=== PATIENT | male | born 1955 | race Caucasian/White ===

== ENCOUNTER 2016-08-13 13:31 | Day surgery (SDC) | payer OTHER ==
[~2016-08-13] VITALS: Ht 175.3 cm; Wt 79.4 kg
[~2016-08-13 13:31] MED LIST: 0.9% Sodium Chloride 1,000 ML IV SCH; ATOR20TA PO; CYAN500 PO; ESOM40CA41 PO; GLBR5T PO; HYDR-656 PO; KEN25CR EXT; LISI10TA PO; METF-777 PO; METO75TA PO; SERT100T9 PO; Sodium Chloride LOK Flush 10 mL Syringe IV PRN; VENL37.57 PO; fentaNYL-PF 50 mCg/mL 2 mL Inj IVPUSH PRN; vitamin d3 PO
[2016-08-13 13:48] VITALS: BP_SYST 133; BP_SYST 148; BP_DIAS 101; BP_DIAS 93; PULSE 100; RESP 14; O2SAT 100
[2016-08-13] MEDS ORDERED: FUR20 PO (13:56)
--- NOTE | 2016-08-13 14:43 | PCM.ENDEGD ---
EGD Date of Service: Aug 13, 2016 Physician Juan J Doran MD Pre Procedure Diagnosis: Reflux Post Procedure Dx & Findings: Gastritis esophagitis possible fungal esophagitis. Procedure Esophagogastroduodenoscopy PROCEDURE IN DETAIL: After proper sedation, Olympus video endoscope was inserted into patient's mouth and esophagus was successfully intubated. Scope introduced esophagus. Esophagus showed normal shiny whitish mucosa consistent with squamous cell component. However there is some patches of whitish material in the near fashion suspicious for fungus. Brushing obtained for cytology. Z line was irregular with redness and edema at 40 cm from the incisors. The scope further events to the stomach. Stomach showed normal reddish edematous mucosa with edematous appearing rugae folds without any ulcer mass erosion. Appears to have inflammation from the antrum to the fundus. Biopsies are obtained from the antrum to the fundus. Cardia fundus body antrum pylorus were all visualized. Retroflexion was done. Stomach was easily inflated and deflatable using air. Scope further events to the distal duodenum. Duodenum revealed normal villous structures with normal appearing folds without any mass ulcer erosion. Impression Possible fungal esophagitis Esophagitis Gastritis Recommendation Await cytology PPI. Follow up in GI clinic Presedation Assessment Risks and Benefits Informed consent was obtained from the patient after all risks and benefits including but not limited to drug reaction, infection, pain, bleeding, perforation, as well as alternatives were discussed. Patient monitoring Continuous pulse oximetry, cardiac monitoring, blood pressure monitoring, IV access, and oxygen at 2L per nasal cannula. Periprocedural Fentanyl: Fentanyl 100mcg Incrementally Midazolam: Midazolam 5mg Incrementally Complications There were no periprocedural complications identified. Post Procedure Plan Post Procedure Recommendations 1. Restrict activities today. 2. Resume normal activities in the morning. 3. Resume medications. 4. GERD behavioral modification: - Avoid fatty, acidic, spicy, large meals - Do not lie down after meals - Do not eat or drink anything for at least 2 1/2 hours before going to bed at night - Discontinue tobacco and alcohol - Decrease or avoid caffeine - Avoid chocolate and mints - Decrease weight - Avoid aspirin and non steroidal anti-inflammatory agents (NSAID) such as Aleve, Advil, Mobic, Naproxen, Ibuprofen, etc 5. Add proton pump inhibitor. Take 30 minutes before 1st meal of the day. 6. Patient informed of normal post procedure side effects as bloating, drowsiness, blood streaking in the stool 7. If gastric biopsy reveal H.pylori, continue with appropriate treatment 8. If small bowel biopsy reveals celiac, continue with appropriate treatment 9. Please don't hesitate to call me with any questions Juan J Doran MD Aug 13, 2016 14:43
--- NOTE | 2016-08-13 15:03 | PCM.ENDCOL ---
Colonoscopy Date of Service: Aug 13, 2016 Physician Juan J Doran MD Pre Procedure Diagnosis: Screening and liver lesion Post Procedure Dx & Findings: Polyp hemorrhoids diverticuli Procedure Colonoscopy PROCEDURE IN DETAIL: Prep adequate Withdrawal time 11 minutes After unremarkable rectal examination the Olympus video colonoscope was inserted patient's anal canal and was advanced to cecum. Landmarks were identified including the ileocecal valve and appendiceal orifice. Scope was withdrawn systematically. Visualized colonic mucosa showed healthy shiny mucosa with normal healthy-appearing vasculature. In the sigmoid colon there was a sub mm polyp which was removed completely using cold forceps. From the descending colon into the distal sigmoid colon, multiple medium-size diverticula noted. In the rectum retroflexion was done which showed hemorrhoids. Anal canal was inspected carefully on the way out and hemorrhoids noted. Impression Polyp 1 status post complete removal Diverticuli Hemorrhoids No source in the colon to explain the liver lesion. Recommendation Follow up in the GI clinic in 2 weeks Please make sure the MRI is done prior to the follow-up Presedation Assessment Risks and Benefits Informed consent was obtained from the patient after all risks and benefits including but not limited to drug reaction, infection, pain, bleeding, perforation, as well as alternatives were discussed. Patient monitoring Continuous pulse oximetry, cardiac monitoring, blood pressure monitoring, IV access, and oxygen at 2L per nasal cannula. Periprocedural Fentanyl: Fentanyl 25mcg Midazolam: Midazolam 2mg Incrementally Complications There were no periprocedural complications identified. Post Procedure Plan Post Procedure Recommendations 1. Restrict activities today. 2. Resume normal activities in the morning. 3. Resume medications. 4. Patient informed of normal post procedure side effects as bloating, drowsiness, blood streaking in the stool. 5. average risk CRCS. If colon polyps come back as: -Hyperplastic- can repeat colonoscopy in 10 years -Tubular adenoma- repeat colonoscopy in 5 years -Tubulovillous/villous adenoma- repeat colonoscopy in 3 years -If any dysplasia- return to clinic as soon as possible 6. Please don't hesitate to call me with any questions. Juan J Doran MD Aug 13, 2016 15:03
[2016-08-13 15:05] VITALS: BP 118/83; PULSE 99; RESP 14; O2SAT 93
[2016-08-13 15:15] VITALS: BP 118/80; PULSE 95; RESP 16; O2SAT 93
[2016-08-13 15:31] VITALS: BP 107/73; PULSE 99; RESP 16; O2SAT 96
--- NOTE | 2016-08-16 11:10 | PATH ---
SURGICAL PATHOLOGY Attending Physician:Juan J Doran M.D. CASE STATUS: Signed Out PATIENT NAME: MARY SALEEM PID: [id number] : 1955 DATE COLLECTED:08/13/2016 00:00 SPECIMEN: 1: Stomach, Biopsy 2: Esophagus, Biopsy 3: Colon, Biopsy CLINICAL HISTORY: 1). STOMACH BIOPSY 2). GASTRO-ESOPHAGEAL JUNCTION BIOPSY 3). SIGMOID POLYP X1 FINAL DIAGNOSIS: 1.STOMACH BIOPSY: GASTRIC CORPUS AND ANTRUM WITH MILD CHRONIC GASTRITIS. Negative for Helicobacter organisms. Negative for intestinal metaplasia. No evidence of dysplasia or malignancy. 2.GASTROESOPHAGEAL JUNCTION BIOPSY: ESOPHAGEAL SQUAMOUS EPITHELIUM AND GASTRIC GLANDULAR MUCOSA WITH CHRONIC ACTIVE INFLAMMATION. Negative for intestinal metaplasia. No evidence of dysplasia or malignancy. 3.SIGMOID COLON POLYP: HYPERPLASTIC POLYP. ICD10 CODE K20.9 D12.6 GROSS DESCRIPTION: The specimen is received in three formalin filled containers labeled with the patient's name. 1). The specimen is sublabeled "stomach" and consists of 4 portions of tissue which aggregate to 0.4 x 0.4 x 0.2 CM. The specimen is entirely submitted in cassette 1A. 2). The specimen is sublabeled "GEJ" and consists of 2 tiny portions of tissue which aggregate to 0.2 x 0.2 x 0.2 CM. The specimen is entirely submitted in cassette 2A. 3). The specimen is sublabeled "sigmoid polyp" and consists of a 0.3 x 0.2 x 0.2 CM portion of tissue which is entirely submitted in cassette 3A. 08/15/2016 DAC MICRO DESCRIPTION: See diagnosis. ICD-9 CODES: CPT CODES: 1: 95408 2: 59687, 86136 3: 73376 PROCEDURE/ADDENDA: Immunohistochemistry SPI Interpretation {Not Entered} Results-Comments This addendum is issued to report the results of a special stain. Part 2 A PAS stain is negative for fungal organisms. A control stain showed appropriate reactivity. This test was developed and its performance characteristics determined by [facility]. It has not been cleared or approved by the U. S. Food and Drug Administration. The FDA has determined that such clearance or approval is not necessary. This test is used for clinical purposes. It should not be regarded as investigational or for research. Electronically Signed Out Jolly Curry MD Electronically Signed Out Rafiq Mccullough MD [facility] Pathology [facility] [address], [place] [address] Technical component performed at [facility], [address], [place], [address]
[2016-09-19] MEDS ORDERED: TAMS0.4C98 PO (16:24)
[2016-10-03] MEDS ORDERED: HYDR-656 PO (11:55)
[2016-10-31] MEDS ORDERED: DOXY100T2 PO (11:22)
[2016-10-31] MEDS ORDERED: OXYC5TAB72 PO (11:22)
== END 2016-08-13 23:59 | disposition home or self-care (01) ==
LOC: END 13:31
PROVIDERS: ATTEND Internal Medicine
DX: K76.9 Liver disease, unspecified (principal); K63.5 Polyp of colon; K57.30 Diverticulosis of large intestine without perforation or abscess without bleeding; K64.9 Unspecified hemorrhoids; K29.50 Unspecified chronic gastritis without bleeding; K21.9 Gastro-esophageal reflux disease without esophagitis; R63.4 Abnormal weight loss; I10 Essential (primary) hypertension; B18.2 Chronic viral hepatitis C; D50.9 Iron deficiency anemia, unspecified; E11.9 Type 2 diabetes mellitus without complications; F32.9 Major depressive disorder, single episode, unspecified; Z79.84 Long term (current) use of oral hypoglycemic drugs; Z86.010 Personal history of colon polyps; Z68.25 Body mass index [BMI] 25.0-25.9, adult
CPT/HCPCS: 43239; 45380; 88305; 99153; G0500; J2250; J3010; J7030

== ENCOUNTER 2016-08-14 16:06 | Inpatient (IN) | payer OTHER ==
[2016-08-14] VITALS (24 sets, daily range): BP systolic 85–145; BP diastolic 61–90; PULSE 72–100; RESP 16–26; O2SAT 96–100
[~2016-08-14] VITALS: Ht 177.8 cm; Wt 74.1 kg
--- NOTE | 2016-08-14 14:24 | DRSUS ---
PROCEDURE: US-GUIDED LIVER BIOPSY ([id number]) Ultrasound-guided liver biopsy with local anesthesia only. INDICATIONS: INFERIOR RIGHT LIVER LESION TECHNIQUE: The indications, alternatives, benefits, risks, and complications of the procedure were e xplained to the patient. Written informed consent was obtained and placed in the chart. Continuous EKG and hemodynamic monitoring was started by trained personnel. Real-time sonography was utilized to choose the site for percutaneous hepatic biopsy. The skin was p repped and draped in the usual sterile fashion. 1% lidocaine was infiltrated down to the hepatic cap chantelle. A coaxial needle was then advanced into the liver under direct sonographic visualization. A b iopsy apparatus was then utilized, and core biopsies were obtained. The needle was then withdrawn; a bandage and overlying weight were applied to the biopsy site. COMPARISON: [facility], US, US GUIDED BX LIVER(PNL), 01/15/2008, 10:11. FINDINGS: Biopsy site(s): Right hepatic lobe, small lesion biopsied from anterior approach. Needle: [facility] biopsy needle set. Number of passes: 3 Medications: 1% lidocaine for local anaesthesia. Complications: None. IMPRESSION: Successful ultrasound-guided liver biopsy, with pathology results pending. Dictated by: Markell Blakely M.D. on 08/14/2016 at 14:22 Approved by: Markell Blakely M.D. on 08/14/2016 at 14:23
--- NOTE | 2016-08-14 15:34 | DRSVH ---
PROCEDURE: CT ABDOMEN WITHOUT CONTRAST ([id number]) INDICATIONS: POST LIVER BX TECHNIQUE: After the administration of oral contrast, 5 mm thick sections acquired from the diaphragms to the il iac crests. 5 mm coronal and sagittal reformats were then performed. For radiation dose reduction, the following was used: automated exposure control, adjustment of mA and/or kV according to patient size. COMPARISON: [facility], MR, MR ABD W&WO CON, 08/03/2016, 12:22. [facility], CT, CT CHEST ABD PELVIS WO CON, 07/09/2016, 12:42. [facility], US, ABDOMEN LTD, 08/14/2016 , 14:37. FINDINGS: Image quality: Excellent. Lung bases: Lung bases are clear. Heart size is normal. Solid organs: Liver and spleen are normal in size. The liver is again seen to contain 2 masses, the largest is superior and measures up to almost 6 cm at the hepatic dome, and the smaller of which is more low within the right hepatic lobe at the junction of middle and lower thirds, measuring up to 1. 4 cm. This is the lesion that was biopsied. Gallbladder contains calcifications. Pancreas is normal in contours. No adrenal nodules. Both kidn eys are normal in size, without hydronephrosis or nephrolithiasis. Peritoneum and bowel: Bowel loops demonstrate normal wall thickness and caliber. No free air. Ther e is abnormal free fluid, hyperdensity, comprised of a rim of approximately 3 cm around the entire li adr, on the right, and tracking inferiorly into the right paracolic gutter. A slight amount of free fluid hypodensity in character is present at the left paracolic gutter. The radiodensity of this reyes e fluid is 40.5 Hounsfield units versus 32.8 Hounsfield units within the aorta. Nodes and vessels: No retroperitoneal or mesenteric adenopathy by size criteria. Aorta and inferior vena cava are normal in size. Bones: No suspicious bony lesions. No vertebral body compression fractures. Miscellaneous: No ventral hernias. IMPRESSION: The liver biopsy performed earlier today was successful in obtaining biopsied material th rough the percutaneous approach utilizing a 20 gauge core biopsy technique. This, however, appears t o have initiated a hemorrhage into the perihepatic space, measuring up to 3 cm in thickness on the ri ght. This extends to a small degree into the paracolic gutter on the right and minimal on the left. The information was immediately discussed with the on-call surgeon, personally. Ongoing hemorrhage i s presumed. The patient has been typed and crossed for at least 4 units at this time. Additionally, hydration with intravenous access is ongoing. The surgeons now caring for the patient will arrange transport from the short observation unit to the surgery unit for laparoscopic evaluation and control of hemorrhage. The access point for biopsy will be clearly visible on the skin surface at the anterolateral upper ab domen, and the site for biopsy from skin surface is approximately 5 cm in depth, anterolateral approa ch. Dictated by: Markell Blakely M.D. on 08/14/2016 at 15:18 Approved by: Markell Blakely M.D. on 08/14/2016 at 15:32
[~2016-08-14 16:06] MED LIST changes: -0.9% Sodium Chloride 1,000 ML IV SCH; +0.9% Sodium Chloride 1,000 ML ONE; +0.9% Sodium Chloride 250 ML ONE; -CYAN500 PO; +FUR20 PO; +Flumazenil 0.1 mg/mL 5 mL Inj IV ONE; -KEN25CR EXT; -Sodium Chloride LOK Flush 10 mL Syringe IV PRN; -vitamin d3 PO
--- NOTE | 2016-08-14 16:10 | DRSUS ---
PROCEDURE: US ABDOMEN, LIMITED ([id number]) INDICATIONS: POST PROCEDURE TECHNIQUE: Real-time focused scanning was performed of the abdomen, with image documentation. COMPARISON: [facility], US, US GUIDED BX LIVER, 08/14/2016, 10:05. [facility], US, ABDOMEN LTD, 08/10/2016, 8:02. FINDINGS: The patient has undergone a percutaneous liver biopsy earlier today, approximately 10 in th e morning, with subsequent concern for possible hemorrhage as a result of this procedure. During sca nning there is free fluid seen the small degree of the right lower quadrant, and none found in the le ft lower quadrant. There is also free fluid around the right hepatic margin. IMPRESSION: The presence of free fluid in the peritoneal space after liver biopsy earlier today thang benavidez concern for post procedural hemorrhage and followup CT scanning will be obtained emergently. Plea se refer to the CT scan report which was performed at approximately 3 in the afternoon. Note: The subsequent CT did show perihepatic hemorrhage, and surgical consultation was immediately ob tained for surgical intervention. Dictated by: Markell Blakely M.D. on 08/14/2016 at 16:07 Approved by: Markell Blakely M.D. on 08/14/2016 at 16:09
[2016-08-14] MEDS ORDERED: Lactated Ringer's 1,000 ML IV ONE ×2 (16:25→16:56)
[2016-08-14] MEDS ORDERED: Insulin Human REGular-Omnicell 100 Unit/mL ONE (16:39)
--- NOTE | 2016-08-14 16:50 | PCM.HPANE ---
Patient Data Surgeon Admitting Provider: Attending Provider:Jb Carter MD Primary Care Physician:Jose Cruz Man Other Provider: Reason for Visit Diseases Of Liver Ht/WT & BMI Height (Feet): 5 Height (Inches): 10.00 Weight (Kilograms): 77.300 Body Mass Index .00 Allergies Coded Allergies: No Known Allergies (Unverified Allergy, Unknown, 06/02/15) Past Anesthesia History Anesthesia History: Denies:: Abnormal Airway, Anesthesia Reactions, Difficult Intubation, Fam Anesthesia Reaction, Fam Malignant Hypertherm, Malignant Hyperthermia Diabetes History Hx Diabetes?: Yes Current Bedside Blood Glucose: 350 MRSA MRSA: No Medications Hypertension Medication: Yes Home Meds Incl Beta Devin: Yes Previous Beta Devin Dose >24: Dose Not Given, Contraindicated Reported Medications Furosemide 20 Mg Tab20 Mg PO BID 30 Days Ref 0 08/13/16 Metoprolol Tartrate 75 Mg Cnyglv74 Mg PO BID 07/30/16 hydrOXYzine Hcl (HydrOXYzine Hcl)25 Mg Vdyufy80.5-25 Mg PO TID PRN For Itching Ref 0 07/30/16 Glyburide 5 Mg Tab5 Mg PO BIDAC Ref 0 07/30/16 Esomeprazole Magnesium (Nexium)40 Mg Capsule.dr40 Mg PO BID Ref 0 07/30/16 Sertraline HCl (Sertraline)100 Mg Lldbrq863 Mg PO DAILY Ref 0 07/30/16 Lisinopril 10 Mg Dafoqb61 Mg PO DAILY Ref 0 07/30/16 Venlafaxine 37.5 Mg Pdyrke71.5 Mg PO BIDWM Ref 0 07/30/16 Metformin HCl (Metformin HCl ER)500 Mg [id number] Mg PO BID 07/30/16 Atorvastatin (Lipitor)20 Mg Veztlw79 Mg PO DAILY Ref 0 07/30/16 Discontinued Reported Medications Triamcinolone Acet (Triamcinolone Acetonide Cream)1 Applic/0.25 Gm Cr1 Applic EXT BID Ref 0 07/30/16 Cyanocobalamin (Vitamin B12)500 Mcg Tablet1,000 Mcg PO DAILY 07/30/16 [vitamin d3] No Conflict Check Po Daily Unknown dose 07/30/16 History History of ENT Problems?: No HEENT History: Positive for:: Hearing Problem Denies:: Abnormal Airway Difficult Intubation Dysphagia Hx of Heart Problems?: Yes Cardiovascular History: Positive for:: Hypertension Denies:: AICD Atrial Fibrillation Chest Pain Congestive Heart Failure Pacemaker Valvular Heart Disease Other Cardiac History: Denies history of CAD/CHF. Hx of Respiratory Problem?: No Respiratory History: Denies:: Tuberculosis Neurological History: Positive for:: Headaches (headaches daily x last 6 months) Denies:: CVA (POSSIBLE TIA) Dementia Hx of GI Problems?: Yes Gastrointestinal History: Positive for:: Gastroesphageal Reflux Hiatal Hernia Rectal Bleeding Denies:: Cirrhosis Diverticulitis Other GI Pertinent History: s/p liver biopsy today with ongoing hemorrhage Hx of Problems?: No Other Skin Pertinent History: patient is covered with scabs from itching Musculoskeletal History: Denies:: Joint Replacement Psycho Social History: Positive for:: Hx Depression Denies:: Anxiety Hx Surgeries?: Yes (NASAL, COLONSCOPIES) Hx Any Other Health Problems?: No History Blood Transfusions: Positive for:: Accept Blood Products? Denies:: Blood Transfusions Hx Diabetes: YesBedside Blood Glucose: 350 Hx Alcohol Use: Yes (2 beers daily; significant use)Hx Substance Use: No Smoking Status: Former Smoker Have You Smoked inLast 12 mo: No Stop/Bang THERESA Risk Assessment: High Risk, =/>3 Yes Risk Assessment Category Category 1A: Patient has history of documented sleep apnea, and HAS NOT received any narcotic, sedative or anesthesia administration during this stay. Category 1B: Patient has history of documented sleep apnea, and HAS received any narcotic , sedative or anesthesia administration during this stay Category 2: Patient has SUSPECTED Obstructive Sleep Apnea, and HAS received any narcotic , sedative or anesthesia administration during this stay. Category 3: Patient has SUSPECTED Obstructive Sleep Apnea and HAS NOT received narcotic, sedative or anesthesia administration during this stay. Category 4: Outpatient in Procedural Areas with known sleep apnea or who screen positive for High Risk via the STOP/BANG questionnaire. Exam Exam Vital Signs Vital Signs Date Time Temp Pulse Resp B/P Pulse Ox O2 Delivery O2 Flow Rate FiO2 08/14/16 16:00 99 20 101/72 97 Room Air 08/14/16 15:45 100 22 111/79 98 Room Air 08/14/16 15:31 99 26 104/75 97 Room Air 08/14/16 15:15 95 22 110/71 Room Air 08/14/16 15:00 94 20 100/74 Room Air 08/14/16 14:45 93 23 95/72 Room Air 08/14/16 14:35 96 101/67 08/14/16 14:32 98 97/61 08/14/16 13:35 97 23 85/64 Room Air 08/14/16 13:30 93 16 120/78 Room Air 08/14/16 13:00 89 24 123/85 Room Air 08/14/16 12:30 80 23 128/86 Room Air 08/14/16 12:15 78 20 136/86 Room Air 08/14/16 12:00 75 19 132/79 Room Air 08/14/16 11:45 76 16 131/83 Room Air 08/14/16 11:30 74 20 145/82 100 Room Air 08/14/16 09:40 77 20 87/71 99 Room Air 08/14/16 09:35 36.9 72 18 109/90 99 Room Air General Appearance: Alert, Oriented X3, Cooperative, No Acute Distress HEENT/AIRWAY: MP 2 Lungs: Clear to Auscultation, Normal Air Movement Heart: Exam Unremarkable, Regular Rate/Rhythm, No Murmurs/Rubs/Gallops Meds/Labs/Diagnostics Admission Meds Current Medications Oxycodone HCl (Roxicodone IR) 5 mg STK-MED ONCE .ROUTE Last administered on t 13:19; Start 08/14/16 at 13:19; Stop 08/14/16 at 13:20; Status DC Bedside Blood Glucose: 350 Labs Test 08/14/16 15:30 Hematocrit 34.1% (41.0-50.0) Plan Impression Patient chart reviewed, patient interviewed and anesthestic plan with risks, benefits, and alternatives discussed, and informed consent obtained. ASA Physical Status: ASA3 Plus Emergency Anesthetic Plan: GA Bene/Risks/Altern/Consents: Yes (discussed emergent need for procedure and possible blood administration, patient aware and elects to proceed.) HP Complete Prior to Induction: Yes Reed Solis MD Aug 14, 2016 16:23
--- NOTE | 2016-08-14 17:19 | CONS ---
[address] [address] CONSULTATION REPORT PATIENT: MARY SALEEM : 1955 MR#: [id number] ADMIT: 08/14/2016 JOB ID: [id number] DATE OF SERVICE: 08/14/2016 REASON FOR CONSULTATION: The patient is seen in consultation at the request of Dr. Markell Blakely regarding further evaluation and management of liver bleeding after percutaneous ultrasound-guided liver biopsy. HISTORY OF PRESENT ILLNESS: The patient is a 60-year-old man undergoing workup by Oncology for an unexplained rash and significant recent weight loss. He recently underwent a CT scan of chest, abdomen and pelvis which demonstrated a lesion in the liver. This was followed up by an MRI which, in fact, demonstrated two lesions in the liver. These are both in the right lobe. He then underwent upper endoscopy as well as colonoscopy, both of which were unrevealing as to the source of this potential metastatic disease. Today, he underwent ultrasound-guided biopsy of one of the liver lesions. Everything seemed to go well, but shortly thereafter he developed lightheadedness when standing. Therefore, he underwent a repeat ultrasound which demonstrated some free fluid in the peritoneal space concerning for bleeding. A CT scan was then obtained which I personally reviewed. This shows about a 3 cm rim of blood surrounding the liver. The patient complains of significant pain. It is difficult for him to take a deep breath. He has had serial hematocrits. At 9:30 this morning it was 38.6. At 2:00 it was 36. At 3:30, it was 34.1. PAST MEDICAL HISTORY: 1. Hypertension. 2. Hyperlipidemia. 3. History of chronic hepatitis C treated with interferon and leucovorin five years ago achieving complete remission. 4. Depression. 5. Reflux. PAST SURGICAL HISTORY: Sinus surgery in 2005. MEDICATIONS: Current medications are reviewed and he is on no blood thinners. ALLERGIES: He has no known drug allergies. FAMILY HISTORY: Family history is reviewed and unremarkable. SOCIAL HISTORY: He lives locally. 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 He quit smoking 20 years ago. He does not drink significant alcohol. REVIEW OF SYSTEMS: Full review of systems is significant for abdominal pain, shortness of breath and diffuse rash as well as weight loss, as per HPI. PHYSICAL EXAMINATION: Vital signs: His heart rate is 99 beats per minute. His blood pressure is 101/72, satting 97% on room air with a respiratory rate of 20 breaths per minute. In general, he appears comfortable in no acute distress. Cardiovascular: He has a regular rate and rhythm. No appreciated murmurs, rubs, gallops. Pulmonary: His lungs are clear to auscultation bilaterally. Vascular: There is no carotid bruit. Neck has no thyromegaly. Lymph: He has no cervical lymphadenopathy. GI: His abdomen is mildly distended but soft. He is diffusely tender, but worse in the right upper quadrant. Extremities: Warm without significant edema. Skin: He has a diffuse rash consisting of crusted erosive superficial lesions, mostly on his legs and arms. Psych: Pleasant and appropriate. Neuro: Grossly intact. LABS AND IMAGING: As per HPI. ASSESSMENT/PLAN: This is a 60-year-old man with liver bleeding after percutaneous liver biopsy. Given the amount of blood seen on the CT scan as well as his symptoms of significant pain, I recommend operative intervention. I recommended laparoscopic lavage with control of the bleeding. I discussed this with the patient. He understands and agrees to proceed. This will be done urgently.
[2016-08-14] MEDS ORDERED: Labetalol 5 mg/mL 4 mL Inj IV PRN (17:25)
[2016-08-14] MEDS ORDERED: Atropine 0.4 mg/mL Inj IVPUSH PRN (17:25)
[2016-08-14] MEDS ORDERED: Phenylephrine 10,000 mCg/mL Inj IVPUSH PRN (17:25)
[2016-08-14] MEDS ORDERED: Lactated Ringer's 500 ML IV PRN (17:25)
[2016-08-14] MEDS ORDERED: Lactated Ringer's 1,000 ML IV SCH (17:25)
[2016-08-14] MEDS ORDERED: MetoCLOpramide 5 mg/mL 2 mL Inj IVPUSH PRN (17:25)
[2016-08-14] MEDS ORDERED: EPHEDrine Sulfate 50 mg/mL Inj IVPUSH PRN (17:25)
[2016-08-14] MEDS ORDERED: Ondansetron 2 mg/mL 2 mL Inj IVPUSH PRN (17:25)
[2016-08-14] MEDS ORDERED: HYDROmorphone 1 mg/mL Inj IVPUSH PRN (17:25)
[2016-08-14] MEDS ORDERED: fentaNYL-PF 50 mCg/mL 2 mL Inj IVPUSH PRN (17:25)
[2016-08-14] MEDS ORDERED: Bupivacaine-MPF 0.25%/EPI 30 mL Inj INJ ONE (17:26)
[2016-08-14] MEDS ORDERED: Lidocaine 2%-Epi 1:100,000 20 mL Inj NERVEBLOCK ONE (17:26)
[2016-08-14] MEDS ORDERED: 0.9% Sodium Chloride 1,000 ML IV ONE (17:28)
[2016-08-14] MEDS ORDERED: Sodium Chloride LOK Flush 10 mL Syringe IVFLUSH PRN (18:05)
--- NOTE | 2016-08-14 18:13 | PCM.ANEP2 ---
Post Anesthesia Evaluation ASA/CMS Post Anesthesia VS in Patient's Normal Range?: Yes Resp Stable; Airway Patent?: Yes CV Function & Hydration Stable: Yes Mental Status Recovered?: Yes Pain control Satisfactory?: Yes N/V Control Satisfactory?: Yes Reed Solis MD Aug 14, 2016 18:13
--- NOTE | 2016-08-14 18:13 | PCM.ANEP1 ---
Post Anesthesia Phase 1 PACU Phase 1 Assessment Vital Signs Vital Signs Date Time Temp Pulse Resp B/P Pulse Ox O2 Delivery O2 Flow Rate FiO2 08/14/16 16:00 99 20 101/72 97 Room Air 08/14/16 15:45 100 22 111/79 98 Room Air 08/14/16 15:31 99 26 104/75 97 Room Air 08/14/16 15:15 95 22 110/71 Room Air 08/14/16 15:00 94 20 100/74 Room Air 08/14/16 14:45 93 23 95/72 Room Air 08/14/16 14:35 96 101/67 08/14/16 14:32 98 97/61 08/14/16 13:35 97 23 85/64 Room Air 08/14/16 13:30 93 16 120/78 Room Air 08/14/16 13:00 89 24 123/85 Room Air 08/14/16 12:30 80 23 128/86 Room Air 08/14/16 12:15 78 20 136/86 Room Air 08/14/16 12:00 75 19 132/79 Room Air 08/14/16 11:45 76 16 131/83 Room Air 08/14/16 11:30 74 20 145/82 100 Room Air Anesthetic Administered: GA Level of Alertness: Sleepy, easy to arouse DAWSON's with Equal Strength: Yes Pain: No Nausea or Vomiting: No Oxygen Delivery: Simple Mask Lungs: Clear to Auscultation, Normal Air Movement Summary VSS, see RN notes Reed Solis MD Aug 14, 2016 18:13
[2016-08-14 18:39] LABS: BASOPHILS % (AUTO) 0.3 % (0-3); EOSINOPHILS % (AUTO) 0.7 % (0-5); MONOCYTES % (AUTO) 11.5 % (4-12); Mean Corpuscular Hemoglobin 26.9 pg (27.0-35.0); Mean Corpuscular Volume 85.8 fL (81-100); NEUTROPHILS % (AUTO) 63.4 % (40-74); Platelet Count 206 bil/L (150-400)
--- NOTE | 2016-08-14 19:07 | OP ---
[address] [address] OPERATIVE REPORT PATIENT: MARY SALEEM : 1955 MR#: [id number] ADMIT: 08/14/2016 JOB ID: [id number] DATE OF SURGERY: 08/14/2016 ANESTHESIA: General. PREOPERATIVE DIAGNOSIS(ES): Intra-abdominal hemorrhage from percutaneous liver biopsy. POSTOPERATIVE DIAGNOSIS(ES): Intra-abdominal hemorrhage from percutaneous liver biopsy. OPERATIVE PROCEDURE: Laparoscopic control of liver hemorrhage with laparoscopic lavage of intra-abdominal blood. SURGEON: Zane Fuentes MD TELECOMMUNICATION EQUIPMENT REPAIRER: Jaylyn Hayes PA-C (the assistant designer was required for the safe and timely completion of the case). COMPLICATIONS: None. ESTIMATED BLOOD LOSS: There was approximately 1 L of blood in the abdomen. (There was no acute surgical blood loss.) COMPLICATIONS: None. SPECIMENS: None. CONDITION: Satisfactory. FINDINGS: Two biopsy sites were identified in the liver and bleeding controlled with argon beam coagulation. There was approximately 1 L of blood in the belly that was evacuated. There was no evidence of intra-abdominal metastatic disease. INDICATION/SIGNIFICANT HISTORY: The patient is a 60-year-old man who has been undergoing evaluation for significant weight loss over the past few months. He was found to have two right-sided hepatic masses and today underwent a percutaneous ultrasound-guided biopsy. Postprocedure he has been noted to have some symptoms suggestive of acute blood loss anemia. Subsequent imaging demonstrated a significant amount of blood in the belly. I was consulted and, given the history as well as the fact that at that point he was having a significant amount of abdominal pain, I recommended going to surgery. OPERATIVE TECHNIQUE: The patient was taken to the operating room and placed using the supine position. General anesthesia was administered. The abdomen was prepped and draped in standard surgical fashion. A procedural pause was performed. Entry was gained into the abdomen through a supraumbilical incision using a 5 mm Optiview trocar. Pneumoperitoneum was achieved without complication. An additional 5 mm port was inserted in the subxiphoid as well as one in the right upper quadrant. I then began to aspirate out a large amount of blood that was predominantly around the liver. There was dense clot. The suction device could not handle the dense clot; therefore, I up-sized the epigastric port to a 12-mm port and then used a larger suction device. After removing the majority of the blood, I identified two small puncture sites in the liver which were slowly oozing. Complete hemostasis was achieved using the argon beam occupational health and safety adviser. I then copiously irrigated the belly with 3 L of warm saline. The abdomen was inspected. There was no evidence of metastatic disease. The case was then concluded. The ports were removed. The epigastric 12 mm port site fascia was closed using 2-0 PDS. The skin was closed using 4-0 Monocryl. Local anesthetic was injected before completion of the case. TAHIR
[2016-08-14] MEDS: Pantoprazole 40 mg ER24 Tablet PO SCH (21:59)
[2016-08-15 05:03] VITALS: BP 111/71; PULSE 72; O2SAT 97
[2016-08-15] MEDS: Pantoprazole 40 mg ER24 Tablet PO SCH ×2 (05:59→20:42)
[2016-08-15 06:26] LABS: Mean Corpuscular Hemoglobin 27.2 pg (27.0-35.0); Mean Corpuscular Volume 87.1 fL (81-100)
[2016-08-15] MEDS ORDERED: Benzocaine-Menthol Lozenge 2/Pkg PO PRN (06:50)
[2016-08-15 09:08] VITALS: BP 117/76; PULSE 80; O2SAT 96
--- NOTE | 2016-08-15 10:06 | PROG NOTE ---
[address] [address] PROGRESS NOTE PATIENT: MARY SALEEM : 1955 MR#: [id number] ADMIT: 08/14/2016 JOB ID: [id number] DATE: 08/15/2016 SUBJECTIVE: The patient is seen postoperative day one from laparoscopic control of liver hemorrhage from a percutaneous liver biopsy. Yesterday I took the patient urgently to the operating room and laparoscopically evacuated approximately 1 L of blood. I identified two small punctures in the liver from his percutaneous biopsy. There was a little bit of oozing from these. This was completely controlled using argon beam assistant scientist. Overnight, he has remained hemodynamically normal. This morning, he complains of abdominal discomfort and some obstipation. He has remained afebrile and hemodynamically overnight. He tolerated drop from around 100 preoperative to now in the 70s. His blood pressure has also increased to a normal level. This morning he is alert and oriented. He appears mildly uncomfortable. His abdomen is a little bit firm and diffusely tender. His dressings are clean, dry and intact. He had a total of 250 cc of urine output overnight and had 220 of oral intake. His white blood cell count has normalized from 11.6 yesterday evening after surgery to 8.8 this morning. His hematocrit has dropped from 29.7 to 26.9. His platelet count has dropped from 206 to 165. ASSESSMENT AND PLAN: This is a 60-year-old man postoperative day one from laparoscopic control of liver hemorrhage, overall doing well. His crit has dropped overnight but I think it is largely hemodilutional. The bleeding site was not very significant in his belly in terms of the rate, and it was easily controlled. Not unexpectedly, I think he likely has an ileus because there was a large volume of blood in his belly. I encouraged him to get up and ambulate, to go really slow on the diet and will see how things do. He has had a mild bump in his creatinine which I think is to be expected given the 1 L of blood loss. Will continue to monitor his urine output. It is possible he could go home today but I anticipate he will probably be here another day or two until he is tolerating a regular diet and having return of normal bowel function.
[2016-08-15 12:59] VITALS: BP 113/73; PULSE 72; O2SAT 100
[2016-08-15] MEDS ORDERED: fentaNYL-PF 50 mCg/mL 2 mL Inj ONE (13:56)
[2016-08-15] MEDS ORDERED: Phenylephrine/NS-PF 100 mCg/mL 5 mL Syringe IVPUSH ONE (13:56)
[2016-08-15] MEDS ORDERED: MetoCLOpramide 5 mg/mL 2 mL Inj ONE (13:56)
[2016-08-15] MEDS ORDERED: Neostigmine 1 mg/mL 10 mL Inj ONE (13:56)
[2016-08-15] MEDS ORDERED: Rocuronium 10 mg/mL 5 mL Inj ONE (13:56)
[2016-08-15] MEDS ORDERED: Glycopyrrolate 0.2 MG/ML 1mL Inj ONE (13:56)
[2016-08-15] MEDS ORDERED: Succinylcholine Chloride 20 mg/mL 5 mL Inj ONE (13:56)
[2016-08-15] MEDS ORDERED: Propofol 10,000 mCg/mL 20 mL Inj ONE (13:56)
[2016-08-15] MEDS ORDERED: Ondansetron 2 mg/mL 2 mL Inj ONE (13:56)
[2016-08-15 17:33] VITALS: BP 93/55; PULSE 72; O2SAT 100
[2016-08-15 19:52] VITALS: BP 105/67; PULSE 75; RESP 20; O2SAT 95
[2016-08-15] MEDS: hydrOXYzine 2 mg/mL 473 mL Syrup PO PRN (23:14)
[2016-08-16 05:42] VITALS: BP 127/71; PULSE 95; RESP 20; O2SAT 92
[2016-08-16] MEDS: Pantoprazole 40 mg ER24 Tablet PO SCH ×2 (06:31→21:32)
[2016-08-16 08:08] LABS: Mean Corpuscular Hemoglobin 27.2 pg (27.0-35.0); Mean Corpuscular Volume 88.5 fL (81-100)
--- NOTE | 2016-08-16 09:32 | PROG NOTE ---
[address] [address] PROGRESS NOTE PATIENT: MARY SALEEM : 1955 MR#: [id number] ADMIT: 08/14/2016 JOB ID: [id number] DATE: 08/16/2016 SUBJECTIVE: The patient is seen postoperative day two from his laparoscopic control of liver bleeding with lavage of the abdomen. He had an uneventful night. This morning, he tells me he feels about the same as yesterday. He was able to get up and walk yesterday. He has been tolerating a diet. He is passing some flatus. He has remained afebrile over the last 24 hours. He is hemodynamically normal this morning. He had a single episode of hypertension recorded yesterday evening but his blood pressure is fine this morning. He is alert and oriented and appears mildly uncomfortable this morning. His abdomen is much softer than it was yesterday. He does have diffuse tenderness to palpation. His white blood cell count is 7.5. His hematocrit continues to drift down to 23.1 from 26.9 yesterday. His platelet count is also drifting down 154 from 165. His creatinine is decreased 1.7 from 1.77 yesterday. Yesterday he had a total of 2.2 L of oral intake with an additional 500 overnight. He has had good urine output with 750 yesterday and an additional 1160 overnight. ASSESSMENT AND PLAN: 1. This is a 60-year-old man with a history of hepatitis C and two malignant-appearing masses within the liver who required laparoscopic intervention for post percutaneous biopsy bleeding of the liver. 2. His hematocrit continues to drift down. I still think this is probably hemodilutional. At time of surgery, there was not very profuse bleeding. It had essentially stopped by that point spontaneously and what little oozing there was was completely controlled with Argon beam. Also he remains essentially hemodynamically normal. His creatinine is trending in the right direction. His examination is improved today and he is having good urine output. At this point we are just going continue to observe him. Hopefully he will be able to get out of here in the next couple days.
[2016-08-16 14:23] VITALS: BP 115/70; PULSE 90; RESP 16; O2SAT 96
[2016-08-16] MEDS: Insulin Human REGular 300 Unit/3 mL Inj SUBQ SCH ×2 (14:30→21:56)
[2016-08-16 17:53] VITALS: BP 97/55; PULSE 70; RESP 18; O2SAT 99
[2016-08-16 20:04] VITALS: BP 101/65; PULSE 76; RESP 16; O2SAT 95
[2016-08-16] MEDS: hydrOXYzine 2 mg/mL 473 mL Syrup PO PRN (21:53)
[2016-08-17] MEDS: Insulin Human REGular 300 Unit/3 mL Inj SUBQ SCH ×4 (02:30→20:30)
[2016-08-17 04:32] LABS: BASOPHILS % (AUTO) 0.1 % (0-3); EOSINOPHILS % (AUTO) 2.4 % (0-5); MONOCYTES % (AUTO) 7.6 % (4-12); Mean Corpuscular Hemoglobin 26.9 pg (27.0-35.0); Mean Corpuscular Volume 88.1 fL (81-100); Platelet Count 171 bil/L (150-400)
[2016-08-17 04:58] VITALS: BP 117/71; PULSE 78; RESP 16; O2SAT 92
[2016-08-17] MEDS: Pantoprazole 40 mg ER24 Tablet PO SCH ×2 (06:16→21:30)
--- NOTE | 2016-08-17 10:55 | PATH ---
SURGICAL PATHOLOGY Attending Physician:Jb Taylor CASE STATUS: Signed Out PATIENT NAME: MARY SALEEM PID: [id number] : 1955 DATE COLLECTED:08/14/2016 20:14 SPECIMEN: Liver, Needle Biopsy CLINICAL HISTORY: 1). LIVER BIOPSY (TISSUE) FOCAL FINAL DIAGNOSIS: 1.LIVER NEEDLE BIOPSY: CHANGES CONSIDERED SUSPICIOUS FOR POSSIBLE HEPATOCELLULAR CARCINOMA (CASE FORWARDED TO THE [facility] DEPARTMENT OF PATHOLOGY FOR EXPERT CONSULTATION). ICD10 code K76.89 NOTE: The changes present within this liver biopsy to this observer are suspicious for possible hepatocellular carcinoma. They do not appear, however, to be absolutely diagnostic, and for this reason the case is forwarded to the [facility] for their expert consultation. The results of that evaluation will be reported in an addendum. The results of this evaluation are telephoned to Dr. Jb Carter at 09:20 a.m. on 08/17/16. GROSS DESCRIPTION: The specimen is received in one formalin filled container labeled with the patient's name, sublabeled "liver tissue" and consists of 4 cylindrical shaped portions of tissue which aggregate to 1.2 x 0.2 x 0.1 CM. The specimen is entirely submitted in one cassette. 08/14/2016 DAC MICRO DESCRIPTION: Sections are of a needle biopsy of liver. There is mild fatty metamorphosis present. A trichrome stain demonstrates prominent areas of sinusoidal fibrosis as well as some portal tract enlargement with fibrosis. There are some areas where the hepatocytes appear disorganized. A reticulin stain demonstrates areas of what appear to be a disorganized pattern. Individual hepatocytes show variation in size, but no definite anaplastic changes are noted. An iron stain is negative. ICD-9 CODES: CPT CODES: 1: 64711, 33879, 83036, 03097 PROCEDURE/ADDENDA: Addendum SPI Addendum Diagnosis Slides reviewed at [facility] Pathology by Dr. Angela Mukherjee Liver, needle biopsy: Hepatocellular carcinoma, well-differentiated; see Comment. Comment: We agree with Dr. Yanez that there are thickened trabeculae (best seen on reticulin stain) with haphazard arrangements of hepatocytes with focal pseudo-glandular formation. Rare unpaired arteries are seen. There is mild steatosis, predominantly macrovesicular. Periportal and foci suspicious for bridging fibrosis are seen on a trichrome stain. There is no significant iron deposition on iron stain. Overall, these findings are consistent with a well-differentiated hepatocellular carcinoma. Dr. Gibson Johnson has reviewed the H&E and reticulin stains from this case and agrees with the above diagnosis. All stains were performed at the referring institution and are reviewed at [facility]. Addendum Comment Please see [facility] Pathology report [id number] for complete details. Electronically Signed Out Pawan Yanez MD Electronically Signed Out Pawan Yanez MD [facility] Pathology [facility] [address], [place] [address] Technical component performed at [facility], [address], [place], [address]
[2016-08-17 13:13] VITALS: BP 105/70; PULSE 71; RESP 18; O2SAT 98
--- NOTE | 2016-08-17 13:19 | PCM.DISURG ---
Surgical Discharge Instruction Date of Service Aug 17, 2016 Dates of Hospitalization Date of Hospital Admission Aug 14, 2016 at 19:17 Providers Admitting Physician: Zane Fuentes MD Primary Care Physician: Jose Cruz Man Attending Physician: Zane Fuentes MD Discharge Diagnosis Discharge Diagnosis Liver bleeding after biopsy Diet Discharge Diet: No restrictions Activity Discharge Activity-General: Be up and about, No driving while taking narcotic Dressing and Incisional Care Dressing Care: Allow Steri Stripes to fall off Hygiene: May shower Follow Up Plan Follow Up Plan Follow up with Surgical PA in 2-4 weeks Call your provider for: Fever, Chills, Increasing abdominal pain, Nausea, Vomiting, Wound redness, Increasing wound pain Zane Fuentes MD Aug 17, 2016 13:19
--- NOTE | 2016-08-17 14:00 | PROG NOTE ---
[address] [address] PROGRESS NOTE PATIENT: MARY SALEEM : 1955 MR#: [id number] ADMIT: 08/14/2016 JOB ID: [id number] DATE: 08/17/2016 SUBJECTIVE: The patient is seen in followup for his recent surgery for liver bleeding after a percutaneous biopsy. He tells me this morning he is feeling improved compared to yesterday. He is tolerating a regular diet. He continues to have abdominal pain but it is better controlled now. He has remained afebrile and hemodynamically normal. This morning, he is alert and oriented. Appears comfortable. His abdomen is soft, non distended, minimally tender. His labs today show that his crit is stable at 22.9. His creatinine continues to trend in the right direction down to 1.6. ASSESSMENT AND PLAN: This is a 60-year-old man who had bleeding from his liver after percutaneous biopsy requiring laparoscopic control of the bleeding. The patient continues to make slow improvement. I hope that he may be able to go home tomorrow or on Saturday. I encouraged him to get up and walk.
[2016-08-17] MEDS: hydrOXYzine 2 mg/mL 473 mL Syrup PO PRN (17:28)
[2016-08-17 20:15] VITALS: BP 113/70; PULSE 86; RESP 20; O2SAT 97
[2016-08-18] MEDS: hydrOXYzine 2 mg/mL 473 mL Syrup PO PRN (00:29)
[2016-08-18] MEDS: Insulin Human REGular 300 Unit/3 mL Inj SUBQ SCH ×2 (02:30→07:31)
[2016-08-18 04:40] VITALS: BP 106/70; PULSE 70; RESP 18; O2SAT 93
[2016-08-18] MEDS: Pantoprazole 40 mg ER24 Tablet PO SCH (06:04)
[2016-08-18 08:30] VITALS: BP 112/72; PULSE 76; RESP 18; O2SAT 96
--- NOTE | 2016-08-18 10:05 | PCM.DISURG ---
Surgical Discharge Instruction Date of Service Aug 18, 2016 Dates of Hospitalization Date of Hospital Admission Aug 14, 2016 at 19:17 Providers Admitting Physician: Zane Fuentes MD Primary Care Physician: Jose Cruz Man Attending Physician: Zane Fuentes MD Activity Discharge Activity-General: Be up and about, No driving while taking narcotic Additional Instructions Discharge Instructions Rx: oxycodone (#15), colace OK to take home meds Follow Up Plan Call your provider for: Fever, Chills, Increasing abdominal pain, Nausea, Vomiting, Wound redness, Increasing wound pain Mario Alberto Miller MD Aug 18, 2016 10:05
--- NOTE | 2016-08-20 11:35 | PCM.DC.SUR ---
Discharge Summary Date of Service: Date of Hospital Admission: Aug 14, 2016 at 19:17 Date of Operation(s): August 14, 2016 Date of Discharge: August 18, 2016 Diagnosis at Time of Discharge Primary Diagnosis: Intra-abdominal hemorrhage from percutaneous liver biopsy. Secondary Diagnosis: 1. Hypertension 2. Hyperlipidemia 3. History of chronic hepatitis C treated with interferon and leucovorin five years ago achieving complete remission 4. Depression 5. GERD 6. Diabetes Mellitus HgbA1c 6.8 Problems: Operation Laparoscopic control of liver hemorrhage with laparoscopic lavage of intra- abdominal blood. Brief History and Physical: The patient is a 60-year-old man undergoing workup by Oncology for an unexplained rash and significant recent weight loss. He recently underwent a CT scan of chest, abdomen and pelvis which demonstrated a lesion in the liver. This was followed up by an MRI which, in fact, demonstrated two lesions in the liver. These are both in the right lobe. He then underwent upper endoscopy as well as colonoscopy, both of which were unrevealing as to the source of this potential metastatic disease. Today, he underwent ultrasound-guided biopsy of one of the liver lesions. Everything seemed to go well, but shortly thereafter he developed lightheadedness when standing. Therefore, he underwent a repeat ultrasound which demonstrated some free fluid in the peritoneal space concerning for bleeding. A CT scan was then obtained which I personally reviewed. This shows about a 3 cm rim of blood surrounding the liver. The patient complains of significant pain. It is difficult for him to take a deep breath. He has had serial hematocrits. At 9:30 this morning it was 38.6. At 2:00 it was 36. At 3:30, it was 34.1. Consultants: General Surgery: Dr. Zane Fuentes Hospital Course: POD # [address] Fuentes's Progress note He has remained afebrile and hemodynamically overnight. This morning he is alert and oriented. He appears mildly uncomfortable. His abdomen is a little bit firm and diffusely tender. His dressings are clean, dry and intact. He had a total of 250 cc of urine output overnight and had 220 of oral intake. His white blood cell count has normalized from 11.6 yesterday evening after surgery to 8.8 this morning. His hematocrit has dropped from 29.7 to 26.9. His platelet count has dropped from 206 to 165. ASSESSMENT AND PLAN: His hematocrit has dropped overnight but I think it is largely hemodilutional. The bleeding site was not very significant in his belly in terms of the rate, and it was easily controlled. Not unexpectedly, I think he likely has an ileus because there was a large volume of blood in his belly. I encouraged him to get up and ambulate, to go really slow on the diet and will see how things do. He has had a mild bump in his creatinine which I think is to be expected given the 1 L of blood loss. Will continue to monitor his urine output. POD # 2 He had an uneventful night. This morning, he tells me he feels about the same as yesterday. He was able to get up and walk yesterday. He has been tolerating a diet. He is passing some flatus. He has remained afebrile over the last 24 hours. He is hemodynamically normal this morning. He had a single episode of hypertension recorded yesterday evening but his blood pressure is fine this morning. He is alert and oriented and appears mildly uncomfortable this morning. His abdomen is much softer than it was yesterday. He does have diffuse tenderness to palpation. ASSESSMENT AND PLAN: 1. This is a 60-year-old man with a history of hepatitis C and two malignant -appearing masses within the liver who required laparoscopic intervention for post percutaneous biopsy bleeding of the liver. 2. His hematocrit continues to drift down. I still think this is probably hemodilutional. At time of surgery, there was not very profuse bleeding. It had essentially stopped by that point spontaneously and what little oozing there was was completely controlled with Argon beam. Also he remains essentially hemodynamically normal. His creatinine is trending in the right direction. His examination is improved today and he is having good urine output. POD # 3 He tells me this morning he is feeling improved compared to yesterday. He is tolerating a regular diet. He continues to have abdominal pain but it is better controlled now. He has remained afebrile and hemodynamically normal. This morning, he is alert and oriented. Appears comfortable. His abdomen is soft, non distended, minimally tender. His labs today show that his hematocrit is stable at 22.9. His creatinine continues to trend in the right direction down to 1.6. ASSESSMENT AND PLAN: The patient continues to make slow improvement. I hope that he may be able to go home tomorrow or on Saturday. POD # 4 Discharged home VSS, afebrile, voiding, ambulating, pain controlled, tolerating regular diet Pathology: NONE Disposition: Home Follow-up Plan: Primary Care ACTING PROFESSOR as needed Atorvastatin (Lipitor) 20 Mg Tablet 20 MG PO DAILY (Reported) Esomeprazole Magnesium (Nexium) 40 Mg Capsule.dr 40 MG PO BID (Reported) Furosemide (Furosemide) 20 Mg Tab 20 MG PO BID (Reported) Glyburide (Glyburide) 5 Mg Tab 5 MG PO BIDAC (Reported) Lisinopril (Lisinopril) 10 Mg Tablet 10 MG PO DAILY (Reported) Metformin HCl (Metformin HCl ER) 500 Mg [id number] 500 MG PO BID (Reported) Metoprolol Tartrate (Metoprolol Tartrate) 75 Mg Tablet 75 MG PO BID (Reported) Sertraline HCl (Sertraline) 100 Mg Tablet 150 MG PO DAILY (Reported) Venlafaxine (Venlafaxine) 37.5 Mg Tablet 37.5 MG PO BIDWM (Reported) hydrOXYzine Hcl (HydrOXYzine Hcl) 25 Mg Tablet 12.5-25 MG PO TID PRN PRN For Itching (Reported) copies to: Shaila Man Sherri L PA-C Aug 20, 2016 11:35
[2016-09-19] MEDS ORDERED: TAMS0.4C98 PO (16:24)
[2016-10-03] MEDS ORDERED: HYDR-656 PO (11:55)
[2016-10-31] MEDS ORDERED: OXYC5TAB72 PO (11:22)
[2016-10-31] MEDS ORDERED: DOXY100T2 PO (11:22)
== END 2016-08-18 13:57 | disposition home or self-care (01) | DRG 909 ==
LOC: EDSTATUS 16:06 → SAS 16:06 → OSC 19:17 → OBSVTOIN 19:17
PROVIDERS: ADMIT General Practice; ATTEND General Practice
PROC: 0W3P4ZZ Control Bleeding in Gastrointestinal Tract, Percutaneous Endoscopic Approach (ICD-10-PCS; principal; 2016-08-14 16:45)
DX: K91.840 Postprocedural hemorrhage of a digestive system organ or structure following a digestive system procedure (principal); I10 Essential (primary) hypertension; E78.5 Hyperlipidemia, unspecified; F32.9 Major depressive disorder, single episode, unspecified; K21.9 Gastro-esophageal reflux disease without esophagitis; E11.9 Type 2 diabetes mellitus without complications